=== PATIENT | female | born 1970 | race Caucasian/White ===

== ENCOUNTER 2018-12-13 21:59 | Emergency (ER) | payer OTHER ==
[2018-12-13] MEDS ORDERED: CLINDAMYCIN 150 MG CAP PO ONE (22:41)
--- NOTE | 2018-12-13 22:41 | Emergency Department Record ---
History of Present Illness - General Chief Complaint: Ankle/Foot Injury Stated Complaint: FOOT INFECTED Time Seen by Provider: 12/13/18 22:40 Source: Patient Mode of Arrival: Ambulatory Limitations: No limitations - History of Present Illness Initial Comments: 48 yo female presents to ED for evaluation of redness and itching to the left foot that bergan this afternoon. Patient reports recent skin breakdown between the 4th/5th toes related to athletes foot that she has been applying anti- fungal cream to for the past 48-72 hours, reports that foot became red and itchy this afternoon. Patient is concerned about possible infection extending up to the mid-foot. Patient denies fevers, chills, or recent illness. Patient denies history of DM or immunosuppression. MD Complaint: Other Onset/Timin -: Days(s) Injury: Foot: Left Type of Injury: Other Improves With: Nothing Worsens With: Nothing Treatments Prior to Arrival: Other - Related Data Home Medications Medication Instructions Recorded Confirmed Last Taken Cetirizine HCl [Zyrtec] 10 mg PO DAILY 12/13/18 12/13/18 12/12/18 Cetirizine HCl/Pseudoephedrine 1 tab PO DAILY 12/13/18 12/13/18 12/13/18 [Zyrtec-D Tablet] Lisinopril 20 mg PO DAILY 12/13/18 12/13/18 12/13/18 Previous Rx's Medication Instructions Recorded Clindamycin HCl [Cleocin HCl] 300 mg PO QID #39 capsule 12/13/18 Allergies Allergy/AdvReac Type Severity Reaction Status Date / Time No Known Drug Allergies Allergy Verified 12/13/18 22:08 Travel Screening - Travel/Exposure Within Last 30 Days Have you traveled within the last 30 days?: No - Travel/Exposure Within Last Year Have you traveled outside the [place] in the last year?: No - Additonal Travel Details Have you been exposed to anyone with a communicable illness?: No - Travel Symptoms Symptom Screening: None Review of Systems Constitutional: Denies: Chills, Fever, Malaise, Night sweats Eyes: Denies: Eye discharge, Eye pain ENT: Denies: Congestion, Ear pain, Epistaxis Respiratory: Denies: Cough, Dyspnea Cardiovascular: Denies: Chest pain, Dyspnea on exertion Endocrine: Denies: Fatigue, Heat or cold intolerance Gastrointestinal: Denies: Abdominal pain, Nausea, Vomiting Genitourinary: Denies: Incontinence, Retention Musculoskeletal: Denies: Arthralgia, Back pain Skin: Reports: Other (Redness to the left foot). Denies: Bruising, Change in color Neurological: Denies: Confusion, Seizure Psychiatric: Denies: Anxiety Hematological/Lymphatic: Denies: Anemia, Blood Clots Past Medical History - SOCIAL HISTORY Smoking Status: Current every day smoker Alcohol Use: None Drug Use: None - RESPIRATORY Hx Respiratory Disorders: Yes Hx Bronchitis: Yes - CARDIOVASCULAR Hx Cardio Disorders: No - NEURO Hx Neuro Disorders: No - GI Hx GI Disorders: No - Hx Genitourinary Disorders: No - ENDOCRINE Hx Endocrine Disorders: No - MUSCULOSKELETAL Hx Musculoskeletal Disorders: Yes Hx Arthritis: Yes Hx Back Injury: Yes - PSYCH Hx Psych Problems: No - HEMATOLOGY/ONCOLOGY Hx Hematology/Oncology Disorders: No Family Medical History Any Significant Family History?: No Physical Exam - General General Appearance: Alert, Oriented x3, Cooperative, Mild distress Limitations: No limitations - Head Head exam: Atraumatic, Normocephalic, Normal inspection Head exam detail: negative: Abrasion, Contusion, Zuniga's sign, General tenderness, Hematoma, Laceration - Eye Eye exam: Normal appearance. negative: Conjunctival injection, Periorbital swelling, Periorbital tenderness, Scleral icterus - ENT Ear exam: negative: Auricular hematoma, Auricular trauma Nasal Exam: negative: Active bleeding, Discharge, Dried blood, Foreign body Mouth exam: negative: Drooling, Laceration, Muffled voice, Tongue elevation - Neck Neck exam: Normal inspection. negative: Meningismus, Tenderness - Respiratory Respiratory exam: Normal lung sounds bilaterally. negative: Rales, Respiratory distress, Rhonchi, Stridor - Cardiovascular Cardiovascular Exam: Regular rate, Normal rhythm, Normal heart sounds Peripheral Pulses: 3+: Dorsalis Pedis (L) - GI/Abdominal GI/Abdominal exam: Soft. negative: Rebound, Rigid, Tenderness - Rectal Rectal exam: Deferred - exam: Deferred - Extremities Extremities exam: Other (There is skin breakdown between the 4th/5th toes on examination with trace STS and erythema extending to the mid-dorsum of the foot , mild warmth to palpation. Strong DPP present.). negative: Calf tenderness, Pedal edema, Tenderness - Back Back exam: Denies: CVA tenderness (R), CVA tenderness (L) - Neurological Neurological exam: Alert, Oriented X3. negative: Motor sensory deficit - Psychiatric Psychiatric exam: Normal affect, Normal mood - Skin Skin exam: Erythema. negative: Abrasion Type of lesion: negative: abrasion Distribution of rash: LLE Description of rash: Macular Course Vital Signs 12/13/18 12/13/18 22:10 22:17 Temperature 98.2 F 98.2 F Pulse Rate [ 119 H Left] Respiratory 18 18 Rate Blood Pressure 154/97 [Left Arm] Pulse Ox 97 97 - Reevaluation(s) Reevaluation #1: 12/13/18 22:46 Examination appears c/w mild cellulitis to the dorsum of the left foot extending to the mid-portion of the foot. Small excoriation of the skin between the 4th/5th toes may be portal of injury. Patient denies history of DM/immunosuppression. Will initiate treatment with Clindamycin as directed with instructions to return to the ED for re-evaluation of redness extends to the level of the ankle. Patient appears stable for discharge with outpatient treatment as discussed. Disposition Disposition: Discharge Clinical Impression: Cellulitis of foot Disposition: Home, Self-Care Condition: (2) Stable Instructions: Cellulitis (ED) Additional Instructions: Return to ED if your symptoms worsen or if you have any concerns. Clindamycin as directed. Follow-up with your family doctor in 3-5 days as directed. Prescriptions: Clindamycin HCl [Cleocin HCl] 300 mg PO QID #39 capsule Forms: Patient Portal Access Time of Disposition: 22:41 Quality - Quality Measures Quality Measures: N/A - Blood Pressure Screening Does Patient Have Any of the Following: No Blood Pressure Classification: Hypertensive Reading Systolic Measurement: 154 Diastolic Measurement: 97 Screening for High Blood Pressure: < First Hypertensive BP, F/U Documented > [ [id number]] First Hypertensive Follow-up Interventions: Referral to alternative/primary care provider.
== END 2018-12-13 22:50 | disposition home or self-care (01) ==
LOC: ER 21:59
DX: L03.116 Cellulitis of left lower limb (principal); F17.210 Nicotine dependence, cigarettes, uncomplicated
CPT/HCPCS: 99282